=== PATIENT | male | born 1950 | race African-American/Black ===

== ENCOUNTER 2024-03-30 19:05 | Inpatient (IN) | payer MEDICARE, MEDICAID ==
[~2024-03-30] VITALS: Ht 167.6 cm; Wt 79.4 kg
[2024-03-30] MEDS: LORAZEPAM 2MG/ML INJ IV ONE (19:58)
[2024-03-30 20:10] LABS: BASOPHILS % 0.4 % (0.0-2.0); EOSINOPHILS % 0.7 % (0.0-5.0); HEMATOCRIT. 34.9 % (42.0-52.0); HEMOGLOBIN. 11.4 g/dL (14.0-18.0); LYMPHOCYTES % 9.4 % (20.0-50.0); MEAN CORPUSCULAR HEMOGLOBIN 31.6 pg (28.0-32.0); MEAN CORPUSCULAR HGB CONC 32.6 g/dL (31.0-37.0); MEAN PLATELET VOLUME 7.8 fl (7.4-10.4); MONOCYTES % 9.2 % (2.0-8.0); NEUTROPHILS % 80.3 % (40.0-76.0); PLATELET 248 x1000/uL (130-400); RED CELL DISTRIBUTION WIDTH 15.7 % (11.6-14.6); WHITE BLOOD COUNT 8.9 x1000/uL (4.5-11.0)
[2024-03-30 20:20] LABS: CHLORIDE 111 mEq/L (98-107); POTASSIUM 4.2 mEq/L (3.5-5.1); PROTHROMBIN TIME 10.9 sec (9.6-11.0); SODIUM 146 mEq/L (136-145)
[2024-03-30 20:21] LABS: CALCIUM 10.6 mg/dL (8.7-10.4); CARBON DIOXIDE 26 mEq/L (21-32)
[2024-03-30 20:26] LABS: GLUCOSE 102 mg/dL (70-105); UREA NITROGEN BLOOD 27 mg/dL (9-23)
[2024-03-30 20:27] LABS: ALANINE AMINOTRANSFERASE 11 IU/L (10-49); AMMONIA < 17 uMol/L (<32); TROPONIN I HIGH SENSITIVITY 16 ng/L (3.0-53)
[2024-03-30 20:28] LABS: ACETAMINOPHEN < 2 ug/mL (10-30); ALBUMIN 4.9 g/dL (3.2-4.8); ASPARTATE AMINOTRANSFERASE 24 IU/L (<34); BILIRUBIN DIRECT 0.3 mg/dL (<=3.0); CREATINE KINASE 158 IU/L (46-171)
[2024-03-30 20:37] LABS: CREATININE 1.8 mg/dL (0.6-1.3)
[2024-03-30 20:57] LABS: ETHANOL BLOOD < 10 mg/dL (<10)
[2024-03-30] MEDS: SODIUM CHLORIDE 0.9% 1,000 ML IV ONE (21:11)
[2024-03-30 21:32] LABS: CLARITY URINE CLEAR (CLEAR); COLOR URINE DARK YELLOW (YELLOW); GLUCOSE URINE NEGATIVE (NEGATIVE); KETONES URINE NEGATIVE (NEGATIVE); LEUKOCYTE ESTERASE URINE NEGATIVE (NEGATIVE); NITRITE URINE NEGATIVE (NEGATIVE); OCCULT BLOOD URINE 1+ (NEGATIVE); PH URINE 5.5 (4.5-8.0); PROTEIN URINE TRACE (NEGATIVE); SPECIFIC GRAVITY URINE 1.019 (1.005-1.030); UROBILINOGEN URINE 0.2 E.U./dL (0.2-1.0)
[2024-03-30 21:42] LABS: *AMPHETAMINES SCREEN URINE NEGATIVE (NEGATIVE)
[2024-03-30 21:43] LABS: *BARBITURATES SCREEN URINE NEGATIVE (NEGATIVE); *BENZODIAZEPINES SCREEN URINE NEGATIVE (NEGATIVE); *COCAINE SCREEN URINE NEGATIVE (NEGATIVE); CANNABINOID URINE SCREEN PRESUMPTIVE POSITIVE (NEGATIVE); ECSTASY MDMA SCREEN URINE NEGATIVE (NEGATIVE); METHADONE URINE SCREEN NEGATIVE (NEGATIVE); OPIATES URINE SCREEN PRESUMPTIVE POSITIVE (NEGATIVE); PHENCYCLIDINE URINE SCREEN NEGATIVE (NEGATIVE)
[2024-03-30 22:06] LABS: BACTERIA URINE 1+; SQUAMOUS EPITHELIAL CELL URINE FEW /lpf (RARE/1+)
[2024-03-30 22:07] LABS: WBC URINE 0-2 /hpf (0-2)
[2024-03-31] MEDS ORDERED: LORAZEPAM 2MG/ML INJ IV PRN (01:15)
[2024-03-31] MEDS ORDERED: CLONIDINE 0.1MG TABLET PO PRN (01:15)
[2024-03-31 01:53] VITALS: BP 119/74; PULSE 80; RESP 20; TEMP 36.14
[2024-03-31 04:00] VITALS: BP 130/79; PULSE 70; RESP 18; TEMP 36.22512; O2SAT 100
[2024-03-31] MEDS ORDERED: ACETAMINOPHEN 325MG TABLET PO PRN (06:45)
[2024-03-31] MEDS ORDERED: ONDANSETRON HCL 4MG/2ML INJ IV PRN (06:45)
[2024-03-31] MEDS: HYDROCODONE/ACETAMINOPHEN 5/325MG TABLET PO PRN (06:57)
[2024-03-31] MEDS ORDERED: NALOXONE HCL 0.4MG/ML VIAL IV PRN (07:00)
[2024-03-31 07:35] LABS: BASOPHILS % 0.4 % (0.0-2.0); EOSINOPHILS % 5.2 % (0.0-5.0); HEMATOCRIT. 32.9 % (42.0-52.0); HEMOGLOBIN. 10.7 g/dL (14.0-18.0); LYMPHOCYTES % 21.3 % (20.0-50.0); MEAN CORPUSCULAR HEMOGLOBIN 31.9 pg (28.0-32.0); MEAN CORPUSCULAR HGB CONC 32.4 g/dL (31.0-37.0); MEAN CORPUSCULAR VOLUME 98.3 fL (80.0-94.0); MEAN PLATELET VOLUME 7.2 fl (7.4-10.4); MONOCYTES % 8.7 % (2.0-8.0); NEUTROPHILS % 64.4 % (40.0-76.0); PLATELET 208 x1000/uL (130-400); RED BLOOD CELL COUNT 3.35 mill/uL (4.7-6.1); RED CELL DISTRIBUTION WIDTH 16.1 % (11.6-14.6); WHITE BLOOD COUNT 5.7 x1000/uL (4.5-11.0)
[2024-03-31 07:40] LABS: CHLORIDE 109 mEq/L (98-107); POTASSIUM 4.6 mEq/L (3.5-5.1); SODIUM 146 mEq/L (136-145)
[2024-03-31 07:41] LABS: CARBON DIOXIDE 26 mEq/L (21-32)
[2024-03-31 07:42] LABS: CALCIUM 10.1 mg/dL (8.7-10.4)
[2024-03-31 07:46] LABS: CREATININE 1.2 mg/dL (0.6-1.3); GLUCOSE 123 mg/dL (70-105)
[2024-03-31 07:47] LABS: ALANINE AMINOTRANSFERASE 12 IU/L (10-49); UREA NITROGEN BLOOD 20 mg/dL (9-23)
[2024-03-31 07:48] LABS: ALBUMIN 4.2 g/dL (3.2-4.8); ASPARTATE AMINOTRANSFERASE 30 IU/L (<34); BILIRUBIN TOTAL 1.3 mg/dL (0.1-1.0)
[2024-03-31 07:49] LABS: PROTEIN TOTAL 7.4 g/dL (6.0-8.3)
[2024-03-31 08:00] VITALS: BP 101/54; PULSE 61; RESP 18; TEMP 35.66952; O2SAT 97
[2024-03-31] MEDS: ASPIRIN 81MG TABLET PO SCH (09:37)
[2024-03-31 12:00] VITALS: BP 110/56; PULSE 62; RESP 18; TEMP 35.89176; O2SAT 98
[2024-03-31 16:00] VITALS: BP 118/52; PULSE 67; RESP 20; TEMP 36.16956; O2SAT 100
[2024-03-31 20:00] VITALS: BP 128/62; PULSE 63; RESP 18; TEMP 36.72516; O2SAT 96
[2024-04-01] VITALS: BP 121/54; PULSE 77; RESP 18; TEMP 36.05844; O2SAT 97
[2024-04-01 04:00] VITALS: BP 140/77; PULSE 72; RESP 18; TEMP 36.72516; O2SAT 99
[2024-04-01 08:00] VITALS: BP 137/74; PULSE 74; RESP 18; TEMP 36.33624; O2SAT 100
[2024-04-01 12:00] VITALS: BP 112/67; PULSE 57; RESP 18; TEMP 36.50292; O2SAT 96
[2024-04-01 16:00] VITALS: BP 135/70; PULSE 60; RESP 18; TEMP 36.3918; O2SAT 96
[2024-04-01 20:00] VITALS: BP 136/79; PULSE 65; RESP 19; TEMP 36.61404; O2SAT 97
[2024-04-02] VITALS: BP 120/69; PULSE 70; RESP 19; TEMP 36.28068; O2SAT 98
[2024-04-02 08:00] VITALS: BP 143/64; PULSE 64; RESP 18; TEMP 36.16956; O2SAT 96
[2024-04-02 12:00] VITALS: BP 136/93; PULSE 76; RESP 18; TEMP 36.28068; O2SAT 95
[2024-04-02 16:00] VITALS: BP 131/85; PULSE 69; RESP 18; TEMP 36.44736; O2SAT 100
[2024-04-02] MEDS ORDERED: CLOP-31 MT (19:06)
[2024-04-02 20:00] VITALS: BP 93/57; PULSE 72; RESP 19; TEMP 36.61404; O2SAT 98
[2024-04-03] VITALS: BP 98/75; PULSE 75; RESP 20; TEMP 36.78072; O2SAT 98
[2024-04-03 04:00] VITALS: BP 107/68; PULSE 79; RESP 18; TEMP 36.72516; O2SAT 97
[2024-04-03 08:00] VITALS: BP 119/75; PULSE 80; RESP 18; TEMP 36.55848; O2SAT 98
[2024-04-03 09:11] VITALS: RESP 18
[2024-04-03 09:42] VITALS: BP 119/75; PULSE 89; TEMP 97.8; O2SAT 100
== END 2024-04-03 10:00 | disposition home or self-care (01) | DRG 70 ==
LOC: ER 19:05 → 7EST 23:43
PROVIDERS: ADMIT Internal Medicine; ATTEND Internal Medicine
PROC: 4A10X4Z Monitoring of Central Nervous Electrical Activity, External Approach (ICD-10-PCS; principal; 2024-04-01)
DX: G93.41 Metabolic encephalopathy (principal); N17.0 Acute kidney failure with tubular necrosis; J84.9 Interstitial pulmonary disease, unspecified; Z86.73 Personal history of transient ischemic attack (TIA), and cerebral infarction without residual deficits; F91.9 Conduct disorder, unspecified; G93.89 Other specified disorders of brain
CPT/HCPCS: 36415; 70551; 71045; 73560; 80048; 80053; 80061; 80076; 80305; 80307; 80320; 80329; 81003; 82140; 82550; 82607; 82962; 83036; 83880; 84484; 85025; 93880; 95816; 97162; 99291; J2060; J7030; G0480